=== PATIENT | female | born 1970 | race Caucasian/White ===

== ENCOUNTER 2019-02-15 00:33 | Emergency (ER) | payer BC ==
--- NOTE | 2019-02-15 00:33 | EDM.PDOC ---
ED HPI GENERAL MEDICAL PROBLEM - General Stated Complaint: AMBULANCE-FELL HIP PAIN Time Seen by Provider: 02/15/19 00:31 Source of Information: Reports: Patient History Limitations: Reports: No Limitations - History of Present Illness INITIAL COMMENTS - FREE TEXT/NARRATIVE: fell onto right hip tonight unable bear weight. denies head/neck pain, denies . Right Hip Pain Score (Numeric/FACES): 7 - Related Data Allergies Allergy/AdvReac Type Severity Reaction Status Date / Time No Known Allergies Allergy Verified 02/15/19 00:37 Home Meds: Home Meds . 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 , Musculoskeletal History: Reports: None Neurological History: Reports: None Psychiatric History: Reports: Anxiety Endocrine/Metabolic History: Reports: None Hematologic History: Reports: None Oncologic (Cancer) History: Reports: None Dermatologic History: Reports: None - Infectious Disease History Infectious Disease History: Reports: None - Past Surgical History Head Surgeries/Procedures: Reports: None Social & Family History - Family History Family Medical History: Noncontributory - Caffeine Use Caffeine Use: Reports: Coffee - Living Situation & Occupation Living situation: Reports: , with Family Occupation: Employed ED ROS GENERAL - Review of Systems Review Of Systems: ROS reveals no pertinent complaints other than HPI. ED EXAM,LOWER BACK PAIN/INJURY - Physical Exam Exam: See Below Exam Limited By: No Limitations General Appearance: Alert, WD/WN, Mild Distress, Other (hip pain) Eye Exam: Bilateral Eye: PERRL (pupils ess ER @ 4mm) Ears: Hearing Grossly Normal Throat/Mouth: Normal Voice, No Airway Compromise Head: Atraumatic Neck: Non-Tender, Full Range of Motion Respiratory/Chest: No Respiratory Distress Cardiovascular: Regular Rate, Rhythm GI/Abdominal: Soft, Non-Tender Back Exam: Other (right hip pain, NV wnl) Neurological: Alert, Oriented x 3 Psychiatric: Tearful Skin Exam: Warm, Dry, Normal Color Lymphatic: No Adenopathy Course - Vital Signs Last Recorded V/S: Last Vital Signs Temp 36.5 C 02/15/19 00:34 Pulse 93 02/15/19 00:34 Resp 18 02/15/19 00:34 BP 137/87 02/15/19 00:34 Pulse Ox 98 02/15/19 00:34 - Orders/Labs/Meds Orders: Active Orders 24 hr Category Date Time Status Pelvis wo Cont [CT] Urgent Exams 02/15/19 00:30 Taken Meds: Medications Discontinued Medications Generic Name Dose Route Start Last Admin Trade Name Zain PRN Reason Stop Dose Admin Morphine Sulfate 2 mg 02/15/19 00:35 02/15/19 00:45 Morphine IVPUSH 02/15/19 00:36 2 mg ONETIME ONE Administration Ondansetron HCl 4 mg 02/15/19 00:35 02/15/19 00:43 Zofran IV 02/15/19 00:36 4 mg ONETIME ONE Administration - Re-Assessments/Exams Free Text/Narrative Re-Assessment/Exam: 02/15/19 01:[address] Martinez @ who kindly accepted pt. Departure - Departure Time of Disposition: 01:27 Disposition: DC/Tfer to Acute Hospital 02 Condition: Good Clinical Impression: Fracture of neck of femur, hip - Discharge Information Forms: Interfacility Transfer EMTALA - My Orders Last 24 Hours: My Active Orders 02/15/19 00:30 Pelvis wo Cont [CT] Urgent - Assessment/Plan Last 24 Hours: My Active Orders 02/15/19 00:30 Pelvis wo Cont [CT] Urgent
[2019-02-15] MEDS ORDERED: Ondansetron 4 MG/2 ML SDV IV ONE (00:35)
[2019-02-15] MEDS ORDERED: Morphine 2 MG/ML Syringe IVPUSH ONE (00:35)
[2019-02-15 00:36] VITALS: BP 137/87
[2019-02-15] MEDS ORDERED: HYDROmorphone 1 MG/ML Syringe IVPUSH ONE (01:28)
== END 2019-02-15 01:52 ==
LOC: DL.ED 00:33
DX: S72.011A Unspecified intracapsular fracture of right femur, initial encounter for closed fracture (principal); W19.XXXA Unspecified fall, initial encounter
CPT/HCPCS: 72192; 96374; 96375; 99285; J1170; J2270; J2405

== ENCOUNTER 2021-02-05 08:34 | Emergency (ER) | payer BC ==
--- NOTE | 2021-02-05 08:47 | EDM.PDOC ---
ED HPI GENERAL MEDICAL PROBLEM - General Chief Complaint: ENT Problem Stated Complaint: HEAD COLD?STUFFY PRESSURE EYES EARS SORE THROAT Time Seen by Provider: 02/05/21 08:41 Source of Information: Reports: Patient, Old Records, RN, RN Notes Reviewed History Limitations: Reports: No Limitations - History of Present Illness INITIAL COMMENTS - FREE TEXT/NARRATIVE: Pt presents to ER with c/o stuffy congestion, sore throat, pressure behind eyes and ears. Denies cough, fever, difficulty breathing, or chest pain. She has not tried any OTC or home remedies for her symptoms before coming to the emergency department. No known sick contacts. Onset: Gradual Duration: Day(s): (4), Constant Location: Reports: Other (ENT) Quality: Reports: Pressure Severity: Moderate Improves with: Reports: None Worsens with: Reports: None Associated Symptoms: Reports: No Other Symptoms - Related Data Allergies Allergy/AdvReac Type Severity Reaction Status Date / Time No Known Allergies Allergy Verified 02/15/19 00:37 Home Meds: Home Meds . 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 , Musculoskeletal History: Reports: None Neurological History: Reports: None Psychiatric History: Reports: Anxiety Endocrine/Metabolic History: Reports: None Hematologic History: Reports: None Oncologic (Cancer) History: Reports: None Dermatologic History: Reports: None - Infectious Disease History Infectious Disease History: Reports: None - Past Surgical History Head Surgeries/Procedures: Reports: None Social & Family History - Family History Family Medical History: No Pertinent Family History - Caffeine Use Caffeine Use: Reports: Coffee - Living Situation & Occupation Living situation: Reports: , with Family Occupation: Employed ED ROS ENT - Review of Systems Review Of Systems: Comprehensive ROS is negative, except as noted in HPI. ED EXAM, ENT - Physical Exam Exam: See Below Exam Limited By: No Limitations General Appearance: Alert, WD/WN, No Apparent Distress Eye Exam: Bilateral Eye: Normal Inspection Ears: Normal External Exam, Normal Canal, Hearing Grossly Normal, Normal TMs Nose: No Blood, Nasal Discharge (clear), Injected Turbinates. No: Active Bleeding, Dried Blood Mouth/Throat: Normal Gums, Normal Lips, Normal Teeth, Pharyngeal Erythema (mild streaks with postnasal drip), Throat Pain. No: Muffled Voice, Peritonsillar Mass, Throat Swelling, Tonsillar Erythema, Tonsillar Exudates, Tonsillar Swelling, Uvular Deviation, Uvular Edema Head: Atraumatic, Normocephalic, Sinus Tenderness Neck: Normal Inspection, Supple, Non-Tender, Full Range of Motion. No: Lymphadenopathy (L), Lymphadenopathy (R) Respiratory/Chest: No Respiratory Distress, Lungs Clear, Normal Breath Sounds, No Accessory Muscle Use, Chest Non-Tender Cardiovascular: Regular Rate, Rhythm Psychiatric: Normal Mood Skin: Warm, Dry, Intact, Normal Color, No Rash Course - Vital Signs Last Recorded V/S: Last Vital Signs Temp 98 F 02/05/21 08:40 Pulse 91 02/05/21 08:40 Resp 18 02/05/21 08:40 BP 134/84 02/05/21 08:40 Pulse Ox 100 02/05/21 08:40 Departure - Departure Time of Disposition: 08:56 Disposition: Home, Self-Care 01 Condition: Good Clinical Impression: Upper respiratory infection with cough and congestion, Sinus pressure, Postnasal drip - Discharge Information *PRESCRIPTION DRUG MONITORING PROGRAM REVIEWED*: Not Applicable *COPY OF PRESCRIPTION DRUG MONITORING REPORT IN PATIENT SAMANTHA: Not Applicable Instructions: Postnasal Drip, Sinus Headache, Viral Respiratory Infection Forms: ED Department Discharge Additional Instructions: Rx: Loratadine D-24HR Rx: Prednisone 20mg *Take with meals. Continue saltwater gargles, Vitamin C, and Zinc. Follow up in clinic if not improving as expected next week. Sepsis Event Note (ED) - Focused Exam Vital Signs: Vital Signs Temp Pulse Resp BP Pulse Ox 02/05/21 08:40 98 F 91 18 134/84 100
[2021-02-05 08:56] VITALS: BP 134/84; PULSE 91
== END 2021-02-05 09:05 | disposition home or self-care (01) ==
LOC: DL.ED 08:34
DX: J06.9 Acute upper respiratory infection, unspecified (principal); R09.82 Postnasal drip
CPT/HCPCS: 99283

== ENCOUNTER 2021-06-24 04:56 | Emergency (ER) | payer BC ==
[2021-06-24] MEDS ORDERED: Nitroglycerin 0.4 MG Tab.SL SL PRN (05:07)
[2021-06-24] MEDS ORDERED: Aspirin 81 MG Tab.Chew PO ONE (05:07)
[2021-06-24] MEDS ORDERED: Ondansetron 4 MG/2 ML SDV IVPUSH ONE (05:20)
[2021-06-24] MEDS ORDERED: Morphine 2 MG/ML SYRINGE IVPUSH ONE (05:21)
[2021-06-24] MEDS ORDERED: Sodium Chloride 0.9% 1,000 ML IV ONE (05:34)
[2021-06-24 05:40] LABS: ANION GAP 11.7 mEq/L (7-13)
[2021-06-24] MEDS ORDERED: Famotidine 20 MG/2 ML SDV IVPUSH ONE (05:52)
[2021-06-24] MEDS ORDERED: GI Cocktail Oral Solution 30 ML PO ONE (05:52)
--- NOTE | 2021-06-24 06:31 | CR ---
PROCEDURE INFORMATION: Exam: XR Chest Exam date and time: 06/24/2021 5:26 AM Age: 51 years old Clinical indication: Pain; Chest pressure; Additional info: Chest pain TECHNIQUE: Imaging protocol: XR of the chest. Views: 1 view. COMPARISON: CR Chest 1V Frontal 08/23/2016 6:26 PM FINDINGS: Lungs: Unremarkable. No consolidation. Pleural spaces: Unremarkable. No pleural effusion. No pneumothorax. Heart/Mediastinum: Unremarkable. No cardiomegaly. Bones/joints: Unremarkable. IMPRESSION: No acute findings.
[2021-06-24] MEDS ORDERED: Iopamidol 612 MG/ML 100 ML Bottle IVPUSH ONE (06:49)
--- NOTE | 2021-06-24 07:03 | EDM.PDOC ---
<Isabella Rock - Last Filed: 06/24/21 07:23> ED HPI GENERAL MEDICAL PROBLEM - General Chief Complaint: Chest Pain Stated Complaint: CHEST PAIN Time Seen by Provider: 06/24/21 05:00 Source of Information: Reports: Patient History Limitations: Reports: No Limitations - History of Present Illness INITIAL COMMENTS - FREE TEXT/NARRATIVE: ED with c/o lower anterior chest pain radiating through back started last ever worse since 4 am, describes sharp stabbing, nauseated hurts to breath. No prior episodes. Tried aleve and pepcid earlier without relief. Chest Pain Score (Numeric/FACES): 8 - Related Data Allergies Allergy/AdvReac Type Severity Reaction Status Date / Time No Known Allergies Allergy Verified 06/24/21 05:17 Home Meds: Home Meds . 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 , Musculoskeletal History: Reports: Fracture Other Musculoskeletal History: Fracture to hip Neurological History: Reports: None Psychiatric History: Reports: Anxiety Endocrine/Metabolic History: Reports: None Hematologic History: Reports: None Oncologic (Cancer) History: Reports: None Dermatologic History: Reports: None - Infectious Disease History Infectious Disease History: Reports: None - Past Surgical History Head Surgeries/Procedures: Reports: None Social & Family History - Family History Family Medical History: No Pertinent Family History - Tobacco Use Tobacco Use Status *Q: Never Tobacco User Second Hand Smoke Exposure: No - Caffeine Use Caffeine Use: Reports: Soda, Tea - Recreational Drug Use Recreational Drug Use: No - Living Situation & Occupation Living situation: Reports: , with Family Occupation: Employed ED ROS GENERAL - Review of Systems Review Of Systems: Comprehensive ROS is negative, except as noted in HPI. ED EXAM, GENERAL - Physical Exam Exam: See Below Exam Limited By: No Limitations General Appearance: Alert, Moderate Distress Eye Exam: Bilateral Eye: EOMI Nose: Normal Inspection Throat/Mouth: Normal Inspection Head: Atraumatic, Normocephalic Neck: Normal Inspection Respiratory/Chest: No Respiratory Distress, Lungs Clear, Normal Breath Sounds Cardiovascular: Normal Peripheral Pulses, Regular Rate, Rhythm, Tachycardia GI/Abdominal: Guarding, Abnormal Bowel Sounds (decreased). No: Mass, Hepatomegaly, Splenomegaly Extremities: Normal Inspection, Normal Range of Motion Neurological: Alert, Oriented Psychiatric: Anxious Skin Exam: Warm, Dry, Intact Course - Re-Assessments/Exams Free Text/Narrative Re-Assessment/Exam: 06/24/21 07:23Pain improved. Appears more relaxed. no nausea. CT chest abdomen ordered. Patient notes since feeling better would like to wait with CT. Departure - Departure Disposition: Home, Self-Care 01 Clinical Impression: Epigastric pain Abdominal pain Qualifiers: Abdominal location: epigastric Qualified Code(s): R10.13 - Epigastric pain Instructions: Abdominal Pain, Adult, [id number], Nonspecific Chest Pain, Adult, [id number] Forms: ED Department Discharge Additional Instructions: Follow up with your primary care facility Drink plenty of water May use Prilosec OTC as directed Return to ER with any worsening of symptoms Sepsis Event Note (ED) - Evaluation Sepsis Screening Result: No Definite Risk <Richelle Kaminski - Last Filed: 06/24/21 08:30> #1 Interpretation EKG Date: 06/24/21 Time: 05:03 Rhythm: NSR Rate (Beats/Min): 99 [place]: Normal P-Wave: Present QRS: Normal ST-T: Normal QT: Normal Comparison: No Change Course - Vital Signs Last Recorded V/S: Last Vital Signs Temp 98.7 F 06/24/21 07:59 Pulse 78 06/24/21 07:59 Resp 18 06/24/21 07:59 BP 152/82 H 06/24/21 07:59 Pulse Ox 99 06/24/21 07:59 - Orders/Labs/Meds Orders: Active Orders 24 hr Category Date Time Status Cardiac Monitoring [RC] . DIRECTED Care 06/24/21 05:08 Active Nitroglycerin [Nitrostat] Med 06/24/21 05:07 Active 0.4 mg SL Q5M PRN Sodium Chloride 0.9% [Normal Saline] 1,000 ml Med 06/24/21 05:34 Active IV .BOLUS Medication Orders Sodium Chloride (Normal Saline) 1,000 mls @ 200 mls/hr IV .BOLUS ONE Stop: 06/24/21 10:33 Last Infusion: 06/24/21 07:48 Dose: 999 mls/hr Documented by: Admin: 06/24/21 05:37 Dose: 200 mls/hr Documented by: JOLIE Nitroglycerin (Nitroglycerin 0.4 Mg Tab.Sl) 0.4 mg SL Q5M PRN PRN Reason: Chest Pain Stop: 06/25/21 05:08 Last Admin: 06/24/21 05:21 Dose: 0.4 mg Documented by: JOLIE Labs: Laboratory Tests 06/24/21 06/24/21 06/24/21 Range/Units 05:09 05:09 05:09 WBC 8.6 (5.0-10.0) 10^3/uL RBC 4.61 (4.2-5.4) 10^6/uL Hgb 13.7 (12.0-16.0) g/dL Hct 39.2 (37.0-47.0) % MCV 85.0 (80-100) fL MCH 29.7 (27.0-34.0) pg MCHC 34.9 (33.0-35.0) g/dL Plt Count 337 (150-450) 10^3/uL Neut % (Auto) 59.8 (42.2-75.2) % Lymph % (Auto) 26.4 (20.5-50.1) % [place] % (Auto) 11.1 H (2-8) % Eos % (Auto) 2.5 (1.0-3.0) % Baso % (Auto) 0.2 (0.0-1.0) % PT 9.7 (9.0-12.0) SEC INR 1.0 (0.9-1.2) D-Dimer, Quantitative < 100 (0-400) ng/mL Sodium 136 (136-145) mmol/L Potassium 3.7 (3.5-5.1) mmol/L Chloride 101 (98-107) mmol/L Carbon Dioxide 27 (21-32) mmol/L Anion Gap 11.7 (7-13) mEq/L BUN 16 (7-18) mg/dL Creatinine 1.03 H (0.55-1.02) mg/dL Est Cr Clr Drug Dosing 60.49 mL/min Estimated GFR (MDRD) 56 BUN/Creatinine Ratio 15.5 (No establ ref range) Glucose 118 H (70-99) mg/dL Calcium 9.0 (8.5-10.1) mg/dL Magnesium 2.2 (1.8-2.4) mg/dL Total Bilirubin 0.5 (0.2-1.0) mg/dL AST 13 L (15-37) U/L ALT 18 (14-59) U/L Alkaline Phosphatase 66 (46-116) U/L Troponin I High Sens 6 (<=51) pg/mL Total Protein 7.4 (6.4-8.2) g/dL Albumin 4.4 (3.4-5.0) g/dL Globulin 3.0 Albumin/Globulin Ratio 1.5 Amylase 57 (25-115) U/L Urine Color (YELLOW) Urine Appearance (CLEAR) Urine pH (5.0-9.0) Ur Specific [place] (1.005-1.030) Urine Protein (NEGATIVE) Urine Glucose (UA) (NEGATIVE) Urine Ketones (NEGATIVE) Urine Occult Blood (NEGATIVE) Urine Nitrite (NEGATIVE) Urine Bilirubin (NEGATIVE) Urine Urobilinogen (0.2-1.0) mg/dL Ur Leukocyte Esterase (NEGATIVE) Urine RBC (0-5) /HPF Urine WBC (0-5/HPF) /HPF Ur Epithelial Cells (NOT SEEN) /HPF Amorphous Sediment (NOT SEEN) /HPF Urine Bacteria (0-FEW/HPF) /HPF Granular Casts (Auto) Urine Mucus (NOT SEEN) /LPF 06/24/21 06/24/21 Range/Units 06:58 07:47 WBC (5.0-10.0) 10^3/uL RBC (4.2-5.4) 10^6/uL Hgb (12.0-16.0) g/dL Hct (37.0-47.0) % MCV (80-100) fL MCH (27.0-34.0) pg MCHC (33.0-35.0) g/dL Plt Count (150-450) 10^3/uL Neut % (Auto) (42.2-75.2) % Lymph % (Auto) (20.5-50.1) % [place] % (Auto) (2-8) % Eos % (Auto) (1.0-3.0) % Baso % (Auto) (0.0-1.0) % PT (9.0-12.0) SEC INR (0.9-1.2) D-Dimer, Quantitative (0-400) ng/mL Sodium (136-145) mmol/L Potassium (3.5-5.1) mmol/L Chloride (98-107) mmol/L Carbon Dioxide (21-32) mmol/L Anion Gap (7-13) mEq/L BUN (7-18) mg/dL Creatinine (0.55-1.02) mg/dL Est Cr Clr Drug Dosing mL/min Estimated GFR (MDRD) BUN/Creatinine Ratio (No establ ref range) Glucose (70-99) mg/dL Calcium (8.5-10.1) mg/dL Magnesium (1.8-2.4) mg/dL Total Bilirubin (0.2-1.0) mg/dL AST (15-37) U/L ALT (14-59) U/L Alkaline Phosphatase (46-116) U/L Troponin I High Sens < 4 (<=51) pg/mL Total Protein (6.4-8.2) g/dL Albumin (3.4-5.0) g/dL Globulin Albumin/Globulin Ratio Amylase (25-115) U/L Urine Color Yellow (YELLOW) Urine Appearance Clear (CLEAR) Urine pH 6.0 (5.0-9.0) Ur Specific [place] 1.025 (1.005-1.030) Urine Protein Negative (NEGATIVE) Urine Glucose (UA) Negative (NEGATIVE) Urine Ketones Negative (NEGATIVE) Urine Occult Blood Negative (NEGATIVE) Urine Nitrite Negative (NEGATIVE) Urine Bilirubin Negative (NEGATIVE) Urine Urobilinogen 0.2 (0.2-1.0) mg/dL Ur Leukocyte Esterase Negative (NEGATIVE) Urine RBC Not seen (0-5) /HPF Urine WBC Not seen (0-5/HPF) /HPF Ur Epithelial Cells Few (NOT SEEN) /HPF Amorphous Sediment Moderate H (NOT SEEN) /HPF Urine Bacteria Rare (0-FEW/HPF) /HPF Granular Casts (Auto) Rare Urine Mucus Rare (NOT SEEN) /LPF Meds: Medications Generic Name Dose Route Start Last Admin Trade Name Freq PRN Reason Stop Dose Admin Sodium Chloride 1,000 mls @ 200 mls/hr 06/24/21 05:34 06/24/21 07:48 Normal Saline IV 06/24/21 10:33 999 mls/hr .BOLUS ONE Infusion Nitroglycerin 0.4 mg 06/24/21 05:07 06/24/21 05:21 Nitroglycerin 0.4 Mg Tab.Sl SL 06/25/21 05:08 0.4 mg Q5M PRN Administration Chest Pain Discontinued Medications Generic Name Dose Route Start Last Admin Trade Name Freq PRN Reason Stop Dose Admin Al Hydroxide/Mg Hydroxide 30 ml 06/24/21 05:52 06/24/21 06:05 Gi Cocktail Oral Solution 30 Ml PO 06/24/21 05:53 30 ml ONETIME ONE Administration Aspirin 324 mg 06/24/21 05:07 06/24/21 05:16 Aspirin 81 Mg Tab.Chew PO 06/24/21 05:08 324 mg ONETIME ONE Administration Famotidine 20 mg 06/24/21 05:52 06/24/21 06:04 Famotidine 20 Mg/2 Ml Sdv IVPUSH 06/24/21 05:53 20 mg ONETIME ONE Administration Iopamidol 100 ml 06/24/21 06:49 Iopamidol 612 Mg/Ml 100 Ml Bottle IVPUSH 06/24/21 06:50 ONETIME ONE Morphine Sulfate 2 mg 06/24/21 05:21 06/24/21 05:30 Morphine 2 Mg/Ml Syringe IVPUSH 06/24/21 05:22 2 mg ONETIME ONE Administration Ondansetron HCl 4 mg 06/24/21 05:20 06/24/21 05:30 Ondansetron 4 Mg/2 Ml Sdv IVPUSH 06/24/21 05:21 4 mg ONETIME ONE Administration - Re-Assessments/Exams Free Text/Narrative Re-Assessment/Exam: 06/24/21 08:27 Repeat troponin negative. Patient states improvement. Discharged home to follow up with her primary care facility. Departure - Departure Time of Disposition: 08:28 Reason for Transfer *Q: Other Condition: Good Sepsis Event Note (ED) - Focused Exam Vital Signs: Vital Signs Temp Pulse Resp BP BP Pulse Ox 06/24/21 07:59 98.7 F 78 18 152/82 H 99 06/24/21 05:21 113/74 06/24/21 05:05 98.9 F 91 20 113/74 99
[2021-06-24 07:59] VITALS: BP 152/82; PULSE 78
== END 2021-06-24 08:40 | disposition home or self-care (01) ==
LOC: DL.ED 04:56
DX: R10.13 Epigastric pain (principal)
CPT/HCPCS: 36415; 71045; 80053; 81001; 82150; 83735; 84484; 85025; 85379; 85610; 93005; 96374; 96375; 99285; A9270; J2270; J2405; J3490; J7030